=== PATIENT | female | born 1970 | race Caucasian/White ===

== ENCOUNTER 2021-04-13 09:44 | Emergency (ER) | payer OTHER, MEDICAID, SELFPAY ==
[2021-04-13 10:05] VITALS: BP 131/71; PULSE 65; RESP 19; TEMP 36.7; O2SAT 99; BMI 23.0
--- NOTE | 2021-04-13 10:05 | DI.RAD.S_ITS ---
PROCEDURE: XR SHOULDER RT MIN 2V INDICATIONS: fall TECHNIQUE: 3 views of the shoulder were acquired. COMPARISON: None. FINDINGS: Bones: No fractures or dislocations. No suspicious bony lesions. Visualized ribs appear intact. Degenerative changes are seen, with focal acromioclavicular joint degenerative change. Soft tissues: No suspicious soft tissue calcifications. The visualized lung demonstrates an unremarkable appearance. IMPRESSION: No acute fracture or dislocation can be seen. If there is point tenderness (or other clinical suspicion for a fracture not seen on these images) then a dedicated CT could be considered for further evaluation, if clinically appropriate. If there is strong clinical suspicion for internal derangement of this joint, please consider a dedicated MRI for further evaluation (assuming that there is no contraindication to MRI). Dictated by: Jeffrey Easton M.D. on 04/13/2021 at 9:39 Approved by: Jeffrey Easton M.D. on 04/13/2021 at 9:40
[2021-04-13 12:50] VITALS: BP 115/67; PULSE 68; RESP 16; O2SAT 97
--- NOTE | 2021-04-13 15:02 | ED.TRAUMA ---
HPI - Trauma <JANE Castaneda - Last Filed: 04/13/21 15:19> General Chief Complaint: Extremity Injury, Upper Stated Complaint: SHOULDER PAIN POST INJURY-FELL AGAIN TODAY Time Seen by Provider: 04/13/21 11:52 Source: patient Mode of arrival: Ambulatory Limitations: no limitations History of Present Illness HPI narrative: 51-year-old female presents to the ED today with right shoulder pain that worsened today when she tripped and caught herself with her right arm. She initially had a injury 2 months ago and has seen Orthopedics with a steroid injection 3 weeks ago. She has a MRI of her right shoulder scheduled tomorrow Tuesday and a follow-up with her orthopedist to review the MRI on . She complains that she can use her arm due to the pain. Her pain is mostly with flexion and abduction. She has been using a sling at home, icing, and taking Motrin, naproxen, and Tylenol but her pain is not controlled with these therapies. She complains of muscle spasms in her shoulder up into her neck. She endorses some numbness and tingling that comes and goes. Related Data Previous Rx's Medication Instructions Recorded hydrocodone 5 mg-acetaminophen 300 1 tab PO BID PRN #10 tab 04/13/21 mg tablet methocarbamol 500 mg tablet 500 mg PO BEDTIME #10 tab 04/13/21 Allergies Allergy/AdvReac Type Severity Reaction Status Date / Time No Known Drug Allergies Allergy Verified 04/13/21 10:09 Review of Systems <JANE Castaneda - Last Filed: 04/13/21 15:19> Review of Systems Narrative: General: denies fever, chills Head/Neck: denies headache, neck pain Eyes: denies visual changes, eye pain Cardio: denies chest pain, palpitations Respiratory: denies shortness of breath, cough GI: denies abdominal pain, nausea, vomiting, or diarrhea : denies dysuria, hematuria MSK: denies muscle weakness, right shoulder pain, pain with passive and active movement Skin: denies rash, itching Patient History <JANE Castaneda - Last Filed: 04/13/21 15:19> Social History Smoking Status: Never smoker Smoking Status: Never smoker Substance Use Type: does not use Exam <JANE Castaneda - Last Filed: 04/13/21 15:19> Narrative Exam Narrative: Independently reviewed vitals signs and nursing notes. General: Awake, alert, nontoxic, no cardiorespiratory distress Head/Neck: Atraumatic, neck full range of motion Eyes: EOMI, conjunctiva normal Nose: nares patent, no rhinorrhea Mouth/Throat: moist mucus membranes Cardio: Regular rate and rhythm no peripheral edema Respiratory: respirations unlabored without wheezing, stridor, or rales. GI: Abdomen nondistended MSK: Limited ROM in right shoulder due to pain, pain with abduction and flexion. No pain with extension. No numbness or tingling during my exam. Capillary refill is less than 2 seconds. Skin: Normal capillary refill, no rash Neuro: Normal speech and cognition, normal gait Initial Vital Signs Initial Vital Signs: Vital Signs Temperature 98.1 F 04/13/21 10:05 Pulse Rate 65 04/13/21 10:05 Respiratory Rate 19 04/13/21 10:05 Blood Pressure 131/71 04/13/21 10:05 Pulse Oximetry 99 04/13/21 10:05 <Lou Pham DO - Last Filed: 04/13/21 19:29> Initial Vital Signs Initial Vital Signs: Vital Signs Temperature 98.1 F 04/13/21 10:05 Pulse Rate 65 04/13/21 10:05 Respiratory Rate 19 04/13/21 10:05 Blood Pressure 131/71 04/13/21 10:05 Pulse Oximetry 99 04/13/21 10:05 Procedures <JANE Castaneda - Last Filed: 04/13/21 15:19> Orthopedic Splinting/Casting Injury #1: Side: right Upper Extremity Injury Location: shoulder Upper Extremity Immobilizer: sling/shoulder immobilizer (Sling) Post splinting vascular exam: intact Placed by: Nursing Course <JANE Castaneda - Last Filed: 04/13/21 15:19> Orders Ordered: ED Orders 04/13/21 10:05 XR shoulder RT min 2V Stat Vital Signs Vital signs: Vital Signs - 8 hr 04/13/21 12:50 Pulse Rate 68 Respiratory Rate 16 Blood Pressure 115/67 Pulse Oximetry 97 <Lou Pham DO - Last Filed: 04/13/21 19:29> Orders Ordered: ED Orders 04/13/21 10:05 XR shoulder RT min 2V Stat Vital Signs Vital signs: Vital Signs - 8 hr 04/13/21 12:50 Pulse Rate 68 Respiratory Rate 16 Blood Pressure 115/67 Pulse Oximetry 97 MDM - Trauma <Diane Morrison WAREHOUSE COORDINATOR - Last Filed: 04/13/21 15:19> Imaging Data Extremity x-ray #1: Radiologist's Impression: PROCEDURE:? XR SHOULDER RT MIN 2V ? INDICATIONS:? fall ? TECHNIQUE:? 3 views of the shoulder were acquired.? ? COMPARISON:? None. ? FINDINGS:? ? Bones:? No fractures or dislocations.? No suspicious bony lesions.? Visualized ribs appear intact.? Degenerative changes are seen, with focal acromioclavicular joint degenerative change. ? Soft tissues:? No suspicious soft tissue calcifications.? The visualized lung demonstrates an unremarkable appearance. ? ? IMPRESSION:? No acute fracture or dislocation can be seen. ? If there is point tenderness (or other clinical suspicion for a fracture not seen on these images) then a dedicated CT could be considered for further evaluation, if clinically appropriate. ? If there is strong clinical suspicion for internal derangement of this joint, please consider a dedicated MRI for further evaluation (assuming that there is no contraindication to MRI).? ? Dictated by: Jeffrey Easton M.D. on 04/13/2021 at 9:39 ? ? Approved by: Jeffrey Easton M.D. on 04/13/2021 at 9:40? [facility] Narrative Medical decision making narrative: 51-year-old female with right shoulder pain that worsened today when she tripped and caught herself with her right arm. Most likely shoulder pain due to previous injury with exacerbation today. Most likely AC separation or rotator cuff tendinitis. MRI scheduled tomorrow with follow-up on Tuesday. Differential includes rotator cuff tendinitis, biceps tendinitis, AC separation, frozen shoulder. Vitals within normal limits. Shoulder x-ray today with no acute fracture or dislocation. Patient was placed in a sling. Prescribed methocarbamol and Vicodin x10 tabs. No Toradol given in this exam as patient had already taken diclofenac and Motrin. Educated patient on taking only 1 type of NSAID with her pain medicine that was prescribed today. She is amenable to discharge home. Vital signs are stable on repeat examination is unremarkable. Patient has been informed of results. Patient has been given strict return to ER precautions for any new or worsening symptoms. Patient understands to follow up closely with outpatient providers as instructed. Patient understands plan and agrees to discharge home. All questions and concerns answered at this time. Discharge Plan Departure Patient Disposition: Home Clinical Impression: Acute shoulder pain Qualifiers: Laterality: right Qualified Code(s): M25.511 - Pain in right shoulder Instructions: DI for Shoulder Sprain Activity Restrictions/Additional Instructions: *You have been diagnosed with acute shoulder pain and a shoulder sprain. There is no fracture, but there may be something treatable that will better show up on MRI. Go to your MRI appointment tomorrow and follow-up as scheduled on Tuesday. Take the methocarbamol and Vicodin for pain as needed. Do not drive on this medication. Do not combine multiple anti-inflammatories. Take 1 type of anti-inflammatory and either the methocarbamol or Vicodin for past pain control. Do not take the methocarbamol and Vicoden at the same time, it will make you very drowsy. *What to do: *Please continue to take your regular medications as directed. [ New medication prescriptions sent to your pharmacy: [ ] [x ] New medication written as a paper prescription [ ] No new medications given *Please follow up with your primary care provider in 2-3 days, call for an appointment. Let them know you were seen in the Emergency Department and that we ask that you be seen in follow up. We will electronically transmit a record of today's note if your PCP is in our system *If you do not have a primary care provider please contact the [facility] Resource line at [phone]. They will ask some questions about your medical history and help get you set up with a doctor in the community. *Return to Emergency Department if you should have any new, worsening or concerning symptoms, such as [fever greater than 101F, chills, worsening pain, persistent vomiting or other bothersome symptoms] Prescriptions: New hydrocodone-acetaminophen 5-300 mg tablet 1 tab PO BID PRN (Reason: pain) Qty: 10 RF: 0 methocarbamol 500 mg tablet 500 mg PO BEDTIME Qty: 10 RF: 0 <Lou Pham, DO - Last Filed: 04/13/21 19:29> Cosign ED Attending Mckenzie Attestation: I was immediately available in the department for consultation. Documentation has been reviewed. I agree with assessment and plan.
== END 2021-04-13 12:50 | disposition home or self-care (01) ==
PROVIDERS: Emergency Provider Nurse Practitioner Critical Care Medicine
DX: M25.511 Pain in right shoulder (principal); W19.XXXA Unspecified fall, initial encounter
CPT/HCPCS: 73030; 99282; 99283

== ENCOUNTER → 2021-05-18 14:25 | Outpatient (CLI) | payer OTHER, MEDICAID, SELFPAY ==
[2021-05-18 15:10] LABS: Hematocrit 40.5 % (36-46); Hemoglobin 13.4 g/dL (12.0-16.0); Mean Corpuscular HGB Conc 33.1 % (30-36); Mean Corpuscular Hemoglobin 29.3 PG (26-34); Mean Corpuscular Volume 88.6 fL (80-100); Platelet Count 212 X10^3/uL (150-400); Red Blood Cell Count 4.58 X10^6/uL (4.0-5.2); Red Cell Distribution Width 16.3 % (11.6-14.8)
[2021-05-18 15:18] LABS: Reticulocyte Count, Percent 0.9 % (1.06-2.63)
[2021-05-18 15:32] LABS: HEMOLYSIS < 15 (0-50); Iron 55 ug/dL (37-170)
[2021-05-18 15:40] LABS: Transferrin 287 mg/dL (206-381); Vitamin D 25 Hydroxy (D3) 49.3 ng/mL (30.0-100.0)
[2021-05-18 15:56] LABS: Percent Iron Saturation 15 % (15-50); Total Iron Binding Capacity 362 ug/dL (265-497)
[2021-05-18 16:04] LABS: TSH w/ Reflex to FT4 2.15 uIU/mL (0.47-4.68)
[2021-05-18 16:09] LABS: Ferritin 13 ng/mL (11-264)
[2021-05-18 16:40] LABS: Vitamin B12 279 pg/mL (239-931)
== END ==
PROVIDERS: PCP Student in an Organized Health Care Education/Training Program; Referring Provider Student in an Organized Health Care Education/Training Program; Visit Provider Student in an Organized Health Care Education/Training Program
DX: D64.9 Anemia, unspecified (principal); Z12.11 Encounter for screening for malignant neoplasm of colon; K31.84 Gastroparesis
CPT/HCPCS: 36415; 82306; 82607; 82728; 82746; 83540; 83550; 84443; 85027; 85045

== ENCOUNTER → 2023-06-22 09:45 | Outpatient (CLI) | payer MEDICARE, MEDICAID, SELFPAY ==
--- NOTE | 2023-06-22 09:48 | DI.RAD.S_ITS ---
PROCEDURE: XR CHEST 2V INDICATIONS: Chest Pain and Fever TECHNIQUE: 2 views of the chest were acquired. COMPARISON: None. FINDINGS: Surgical changes and devices: None. Lungs and pleura: Lungs are clear. No pleural effusions or pneumothorax. Mediastinum: Mediastinal contours are normal. Heart size is normal. Bones and chest wall: No suspicious bony abnormalities. Soft tissues appear unremarkable. IMPRESSION: No evidence acute pulmonary process. Dictated by: Ricardo Rucker M.D. on 06/22/2023 at 17:00 Approved by: Ricardo Rucker M.D. on 06/22/2023 at 17:00
[2023-06-22 11:27] LABS: Add Manual Diff / Slide Review NO; Basophils Absolute Auto 0 /uL (0-100); Basophils Percent Auto 0.6 % (0-2); Eosinophils Absolute Auto 0 /uL (0-450); Eosinophils Percent Auto 0.1 % (2-4); Hematocrit 39.2 % (36-46); Hemoglobin 13.2 g/dL (12.0-16.0); Lymphocytes Absolute Auto 800 /uL (1100-4500); Lymphocytes Percent Auto 22.3 % (25-40); Mean Corpuscular HGB Conc 33.6 % (30-36); Mean Corpuscular Hemoglobin 29.7 PG (26-34); Mean Corpuscular Volume 88.5 fL (80-100); Monocytes Absolute Auto 500 /uL (0-900); Monocytes Percent Auto 13.3 % (3-14); Neutrophils Absolute Auto 2300 /uL (1500-7000); Neutrophils Percent Auto 63.7 % (50-75); Platelet Count 176 X10^3/uL (150-400); Red Blood Cell Count 4.42 X10^6/uL (4.0-5.2); Red Cell Distribution Width 14.2 % (11.6-14.8); White Blood Cell Count 3.7 X10^3/uL (4.5-11.0)
[2023-06-22 11:45] LABS: Alanine Aminotransferase 32 IU/L (<35); Albumin 4.3 g/dL (3.5-5.0); Albumin Globulin Ratio 1.5 (1.0-2.8); Alkaline Phosphatase 55 U/L (38-126); Aspartate Aminotransferase 34 IU/L (14-36); BUN Creatinine Ratio 9.7 (6-22); Bilirubin Total 0.6 mg/dL (0.2-1.3); Blood Urea Nitrogen 6 mg/dL (7-17); Calcium 9.4 mg/dL (8.4-10.2); Carbon Dioxide 27 mmol/L (22-32); Chloride 96 mmol/L (98-107); Estimated Glomerular Filt Rate > 60 mL/min (>60); Globulin 2.9 g/dL (1.7-4.1); Glucose 91 mg/dL (70-100); HEMOLYSIS < 15 (0-50); Potassium 3.9 mmol/L (3.4-5.1); Sodium 131 mmol/L (137-145); Total Protein 7.2 g/dL (6.3-8.2)
[2023-06-22 11:58] LABS: Procalcitonin 0.06 ng/mL (<0.5)
== END ==
PROVIDERS: PCP Family Medicine; Referring Provider Family Medicine; Visit Provider Family Medicine
DX: R07.9 Chest pain, unspecified (principal); R50.9 Fever, unspecified; R09.81 Nasal congestion
CPT/HCPCS: 36415; 71046; 80053; 84145; 85025

== ENCOUNTER → 2023-06-22 | Outpatient (CLI) | payer MEDICARE, MEDICAID, SELFPAY | LOC: LAB 10:04 | PROVIDERS: PCP Family Medicine; Referring Provider Family Medicine; Visit Provider Family Medicine ==

== ENCOUNTER 2023-06-23 10:07 | Emergency (ER) | payer MEDICARE, MEDICAID, SELFPAY ==
[2023-06-23 10:12] VITALS: PULSE 104; O2SAT 95
[2023-06-23 10:13] VITALS: BP 123/70; PULSE 100; O2SAT 95
[2023-06-23 10:16] VITALS: BP 120/70; PULSE 102; RESP 22; TEMP 38.6; O2SAT 95; BMI 23.3
--- NOTE | 2023-06-23 10:16 | DI.RAD.S_ITS ---
PROCEDURE: XR CHEST 1V INDICATIONS: suspected sepsis TECHNIQUE: One view of the chest was acquired. COMPARISON: [facility], CR, XR CHEST 2V, 06/22/2023, 9:48. FINDINGS: Surgical changes and devices: None. Lungs and pleura: Lungs are clear. No pleural effusions or pneumothorax. Mediastinum: Mediastinal contours appear normal. Heart size is normal. Bones and chest wall: No suspicious bony lesions. Overlying soft tissues appear unremarkable. IMPRESSION: No acute cardiopulmonary abnormality. Approved by: Barney Nash M.D. on 06/23/2023 at 10:54
--- NOTE | 2023-06-23 10:26 | ED_ITS ---
HPI - General Adult General Chief complaint: Abdominal Pain Stated complaint: abdominal pain Time Seen by Provider: 06/23/23 10:08 Source: patient and EMS Mode of arrival: EMS History of Present Illness HPI narrative: Patient is a 53-year-old female who initial complaint was abdominal pain however upon further evaluation she states that she is actually here because of confusion and concern about her safety. She is a difficult time specifically expressing her symptoms. Apparently she is been having fevers. She did have a fever today. These have been going off and on for the past 2 years. She would not specifically explained more about her abdominal pain. She denied chest pain or shortness of breath. Review of her medical record showed that she was seen by her primary doctor yesterday for abdominal pain. Had labs performed which were unremarkable. Related Data Home Medications Medication Instructions Recorded Confirmed No Known Home Medications 06/22/23 06/22/23 Allergies Allergy/AdvReac Type Severity Reaction Status Date / Time No Known Drug Allergies Allergy Verified 06/22/23 08:51 Review of Systems Review of Systems Narrative: Somewhat limited by her ability/willingness to answer questions Cardiovascular Cardiovascular: Reports system reviewed and no additional complaints, except as documented Respiratory Respiratory: Reports system reviewed and no additional complaints, except as documented Gastrointestinal Gastrointestinal: Reports system reviewed and no additional complaints, except as documented Integumentary/Breasts Skin/Breast: Reports system reviewed and no additional complaints, except as documented Hematologic/Lymphatic On Anticoagulants: No Patient History Medical History Rosacea Rheumatoid arthritis PTSD (post-traumatic stress disorder) Anxiety Bone pain Fibromyalgia Carpal tunnel syndrome Tinnitus Painful menstrual periods Ovarian cyst Heavy menstrual period Fibroids Hemorrhoid Surgical History (Updated 05/24/21 @ 22:08 by Juana Baird) Anesthesia History of appendectomy History of section Social History Smoking Status: Former smoker Smoking Status: Former smoker Substance Use Type: does not use Exam Initial Vital Signs Initial Vital Signs: Vital Signs Pulse Rate 104 H 06/23/23 10:12 Pulse Oximetry 95 06/23/23 10:12 HENMT Head: normal to inspection and normocephalic Resp Effort & Inspection: normal respiratory effort Auscultation: clear to auscultation bilaterally Cardio Rate: regular rate Rhythm: regular rhythm GI Inspection: non-distended Skin General: no rashes or lesions noted Neuro Other: Patient does move all 4 extremities. She did ambulate to the bathroom. Course Orders Ordered: ED Orders 06/23/23 10:16 XR chest 1V Stat RT Consult Eval and Treat NOW 06/23/23 10:23 COVID19 -Nasal RAPID Stat 06/23/23 10:25 Complete Blood Count AUTO DIFF Stat Comprehensive Metabolic Panel Stat Lactate (Lactic Acid) Stat Lipase Stat Procalcitonin Stat EKG-12 Lead Stat 06/23/23 10:26 CT head/brain wo con Stat 06/23/23 11:00 Urine Culture Stat Urine Microscopic Stat 06/23/23 11:25 Blood Culture Stat Ondansetron HCl (Ondansetron 4 Mg/2 Ml Inj) 4 mg IV NOW PRN PRN Reason: Nausea And Vomiting Ondansetron HCl (Ondansetron 4 Mg Odt) 4 mg SL NOW PRN PRN Reason: Nausea And Vomiting Discontinued Medications Acetaminophen (Acetaminophen 325 Mg Tablet) 975 mg PO NOW ONE Stop: 06/23/23 10:28 Last Admin: 06/23/23 11:06 Dose: Not Given Documented By: ANALY Sodium Chloride (Normal Saline 0.9%) 1,000 mls @ 1,000 mls/hr IV BOLUS ONE Stop: 06/23/23 11:15 Last Admin: 06/23/23 11:06 Dose: 1,000 mls/hr Documented By: ANALY Vital Signs Vital signs: Vital Signs - 8 hr 06/23/23 10:12 06/23/23 10:13 06/23/23 10:13 Temperature Pulse Rate 104 H 100 H Respiratory Rate Blood Pressure 123/70 Pulse Oximetry 95 95 Oxygen Delivery Method 06/23/23 10:16 06/23/23 10:30 06/23/23 10:42 Temperature 101.4 F H Pulse Rate 102 H 106 H 89 Respiratory Rate 22 16 15 Blood Pressure 120/70 Pulse Oximetry 95 96 95 Oxygen Delivery Method Room Air 06/23/23 10:42 Temperature Pulse Rate Respiratory Rate Blood Pressure 123/66 Pulse Oximetry 97 Oxygen Delivery Method Room Air Medical Decision Making Lab Data Lab results reviewed: Yes I reviewed the patient's lab results. 06/23/23 10:25 06/23/23 10:25 Labs: Lab Results 06/23/23 06/23/2306/23/23 Range/Units 10:23 10:25 11:00 WBC 4.9 (4.5-11.0) X10^3/uL RBC 4.44 (4.0-5.2) X10^6/uL Hgb 13.2 (12.0-16.0) g/dL Hct 39.1 (36-46) % MCV 88.2 (80-100) fL MCH 29.9 (26-34) PG MCHC 33.9 (30-36) % RDW 14.1 (11.6-14.8) % Plt Count 165 (150-400) X10^3/uL Neut % (Auto) 83.3 H (50-75) % Lymph % (Auto) 7.4 L (25-40) % [place] % (Auto) 8.9 (3-14) % Eos % (Auto) 0.0 L (2-4) % Baso % (Auto) 0.4 (0-2) % Neut # (Auto) 4100 (0346-7604) /uL Lymph # (Auto) 400 L (6455-1670) /uL [place] # (Auto) 400 (0-900) /uL Eos # (Auto) 0 (0-450) /uL Baso # (Auto) 0 (0-100) /uL Sodium 132 L (137-145) mmol/L Potassium 4.0 (3.4-5.1) mmol/L Chloride 98 (98-107) mmol/L Carbon Dioxide 27 (22-32) mmol/L BUN 7 (7-17) mg/dL Creatinine 0.58 (0.52-1.04) mg/dL Estimated GFR > 60 (>60) mL/min BUN/Creatinine Ratio 12.1 (6-22) Glucose 97 (70-100) mg/dL Lactate 0.8 (0.7-2.1) mmol/L Calcium 9.3 (8.4-10.2) mg/dL Total Bilirubin 0.6 (0.2-1.3) mg/dL AST 32 (14-36) IU/L ALT 31 (<35) IU/L Alkaline Phosphatase 48 (38-126) U/L Total Protein 7.5 (6.3-8.2) g/dL Albumin 4.4 (3.5-5.0) g/dL Globulin 3.1 (1.7-4.1) g/dL Albumin/Globulin Ratio 1.4 (1.0-2.8) Lipase 177 (23-300) U/L Procalcitonin 0.06 (<0.5) ng/mL Urine RBC None seen (0-5/HPF) Urine WBC 10-30/hpf H (0-5/HPF) Ur Squamous Epith Cells 5-10 /hpf H (0-5/HPF) Urine Bacteria Moderate (10-30) H (None) Ur Culture Indicated? Specimen cultured SARS-CoV-2 (PCR) Positive H (Negative) Point of Care Testing Test Results Negative Urine Dip Bedside Urine Glucose Negative Bedside Urine Bilirubin - Negative Bedside Urine Ketone +++ 80 Urine Specific [place] 1.020 Bedside Urine Occult Blood - Negative Bedside Urine pH 6.0 Bedside Urine Protein +/- 15 Bedside Urine Urobilinogen - Negative Bedside Urine Nitrite - Negative Bedside Urine Leukocytes +++ 500 Esterase Point of care testing: Point of Care Testing Test Results Negative Urine Dip Bedside Urine Glucose Negative Bedside Urine Bilirubin - Negative Bedside Urine Ketone +++ 80 Urine Specific [place] 1.020 Bedside Urine Occult Blood - Negative Bedside Urine pH 6.0 Bedside Urine Protein +/- 15 Bedside Urine Urobilinogen - Negative Bedside Urine Nitrite - Negative Bedside Urine Leukocytes +++ 500 Esterase Imaging Data Chest x-ray: Radiologist's Impression: PROCEDURE: XR CHEST 1V INDICATIONS: suspected sepsis TECHNIQUE: One view of the chest was acquired. COMPARISON: [facility], , XR CHEST 2V, 06/22/2023, 9:48. FINDINGS: Surgical changes and devices: None. Lungs and pleura: Lungs are clear. No pleural effusions or pneumothorax. Mediastinum: Mediastinal contours appear normal. Heart size is normal. Bones and chest wall: No suspicious bony lesions. Overlying soft tissues appear unremarkable. IMPRESSION: No acute cardiopulmonary abnormality. CT scan - head: Radiologist's Impression: PROCEDURE: CT HEAD/BRAIN WO CON INDICATIONS: Confusion TECHNIQUE: Noncontrast 4.5 mm thick angled axial sections acquired from the foramen magnum to the vertex, with coronal and sagittal reformats. For radiation dose reduction, the following was used: automated exposure control, adjustment of mA and/or kV according to patient size. COMPARISON: None. FINDINGS: Image quality: Excellent. CSF spaces: Basal cisterns are patent. No extra-axial fluid collections. Ventricles are normal in size and shape. Brain: No midline shift. No intracranial masses or hemorrhage. [place]-white matter interface is normal. Skull and face: Calvarium and visualized facial bones are intact, without suspicious lesions. Sinuses: Small air-fluid level is seen in the left maxillary sinus and there is mild mucosal thickening in the right maxillary sinus and to a lesser extent the ethmoid air cells. The remaining visualized paranasal sinuses and the mastoid air cells are clear. IMPRESSION: 1. No acute intracranial abnormality. 2. Small air-fluid level in the left maxillary sinus may indicate acute sinusitis. ECG Data Attestation: I personally reviewed and interpreted this ECG as follows: Interpretation: Sinus rhythm Ventricular rate 95 Normal axis Normal QRS Normal QTC No ST T wave changes MDM Narrative Medical decision making narrative: Patient has multiple complaints. She states she is not here because of her belly pain but she is here because of the confusion. I have a strong suspicion that her confusion/willingness to answer questions maybe more anxiety related not necessarily an organic cause. Head CT is unremarkable. She is COVID positive. She tolerated oral intake. Upon re-evaluation patient is now alert and oriented. She ambulates without issue. I did discuss with her her positive COVID test. Has no indication for antibiotics. Will discharge patient home with return precautions. Discharge Plan Departure Patient Disposition: Home Clinical Impression: COVID-19 Instructions: COVID-19 Activity Restrictions/Additional Instructions: You can take Tylenol and/or ibuprofen for any fevers. Be sure that you were following all current CDC guidelines with regard to quarantine. These can be found online. Contact your primary doctor for a follow-up. Prescriptions: No Action No Known Home Medications Referrals: Adeline Mukherjee MD [Primary Care Provider] - Stand Alone Forms: Patient Portal/API
[2023-06-23 10:30] VITALS: PULSE 106; RESP 16; O2SAT 96
[2023-06-23 10:35] LABS: Add Manual Diff / Slide Review NO; Basophils Absolute Auto 0 /uL (0-100); Basophils Percent Auto 0.4 % (0-2); Eosinophils Absolute Auto 0 /uL (0-450); Hematocrit 39.1 % (36-46); Hemoglobin 13.2 g/dL (12.0-16.0); Lymphocytes Absolute Auto 400 /uL (1100-4500); Lymphocytes Percent Auto 7.4 % (25-40); Mean Corpuscular HGB Conc 33.9 % (30-36); Mean Corpuscular Hemoglobin 29.9 PG (26-34); Mean Corpuscular Volume 88.2 fL (80-100); Monocytes Absolute Auto 400 /uL (0-900); Monocytes Percent Auto 8.9 % (3-14); Neutrophils Absolute Auto 4100 /uL (1500-7000); Neutrophils Percent Auto 83.3 % (50-75); Platelet Count 165 X10^3/uL (150-400); Red Blood Cell Count 4.44 X10^6/uL (4.0-5.2); Red Cell Distribution Width 14.1 % (11.6-14.8); White Blood Cell Count 4.9 X10^3/uL (4.5-11.0)
[2023-06-23 10:42] VITALS: BP 123/66; PULSE 89; RESP 15; O2SAT 95; O2SAT 97
[2023-06-23 10:50] LABS: COVID19 -Nasal RAPID POSITIVE (Negative)
[2023-06-23 10:54] LABS: Alanine Aminotransferase 31 IU/L (<35); Albumin 4.4 g/dL (3.5-5.0); Albumin Globulin Ratio 1.4 (1.0-2.8); Alkaline Phosphatase 48 U/L (38-126); Aspartate Aminotransferase 32 IU/L (14-36); BUN Creatinine Ratio 12.1 (6-22); Bilirubin Total 0.6 mg/dL (0.2-1.3); Blood Urea Nitrogen 7 mg/dL (7-17); Calcium 9.3 mg/dL (8.4-10.2); Carbon Dioxide 27 mmol/L (22-32); Chloride 98 mmol/L (98-107); Estimated Glomerular Filt Rate > 60 mL/min (>60); Globulin 3.1 g/dL (1.7-4.1); Glucose 97 mg/dL (70-100); HEMOLYSIS < 15 (0-50); Lactate (Lactic Acid) 0.8 mmol/L (0.7-2.1); Lipase 177 U/L (23-300); Sodium 132 mmol/L (137-145); Total Protein 7.5 g/dL (6.3-8.2)
[2023-06-23] MEDS: SODIUM CHLORIDE 0.9% 1,000 ML 1000 ML IV (11:06)
[2023-06-23 11:10] LABS: Procalcitonin 0.06 ng/mL (<0.5)
[2023-06-23 11:13] LABS: Bacteria Urine Moderate (10-30); Culture Indicated Urine Specimen Cultured; RBC Urine None Seen (0-5/HPF); Squamous Epithelial Cell Urine 5-10 /HPF (0-5/HPF); WBC Urine 10-30/HPF (0-5/HPF)
--- NOTE | 2023-06-23 11:30 | PC.NURSE ---
Pt covid +, asked her to wear her mask over her mouth but she refused. Instead she is wearing mask over her eyes with no coverage of the mouth. Pt coughing when RN and mobile lab technician are in the room.
--- NOTE | 2023-06-23 12:00 | PC.NURSE ---
Pt requesting to leave ED. States she wants a different nurse. MD notified pt request to leave and provider immediately to room to talk with pt. Discharge paperwork received and IVs removed. Pt given pen as requested and pt wrote down primary nurses name. Declines wheelchair from department.
--- NOTE | 2023-06-23 12:17 | PC.NURSE ---
Pt states she wants to leave. When asked to sign AMA paperwork pt states she will only speak to charge rn.
== END 2023-06-23 12:18 | disposition home or self-care (01) ==
PROVIDERS: Emergency Provider Emergency Medicine; PCP Family Medicine
DX: U07.1 COVID-19 (principal); R00.0 Tachycardia, unspecified
CPT/HCPCS: 36415; 70450; 71045; 80053; 81003; 81015; 81025; 83605; 83690; 84145; 85025; 87040; 87086; 87635; 93005; 93010; 96360; 99284; C9803